=== PATIENT | female | born 2000 | race Caucasian/White ===

== ENCOUNTER 2021-04-11 08:50 | Emergency (ER) | payer SELFPAY ==
[2021-04-11 08:59] VITALS: BP 112/73; PULSE 87; RESP 16; TEMP 36.6; O2SAT 99; BMI 22.8
--- NOTE | 2021-04-11 09:02 | W.ED.FEMALGU ---
HPI - Female Genitourinary General: Chief complaint: Abdominal Pain Stated complaint: CRAMPING Time Seen by Provider: 04/11/21 08:52 Source: patient Mode of arrival: ambulatory Limitations: no limitations History of Present Illness: HPI Narrative: Patient is a 20-year-old female who presents to ED today with a complaint of lower pelvic pain and cramping over the past 1.5 weeks. She states that she has an IUD that was placed in 2019 (Kyleena-5 year) and states she has not been able to palpate the strings. She is complaining of dyspareunia. She is not having any vaginal bleeding. She does report some vaginal discharge but states this has been present since IUD placement. She has had a new sexual partner. She does complain of some dysuria. Denies frequency, urgency, hesitancy. No fevers, chills. No nausea, vomiting, changes in bowel movements. MD elicited complaint: dysuria, pelvic pain and other (concern for IUD placement) Onset (ago): week(s) (1.5 weeks) Quality of pain: cramping Consistency: intermittent Vaginal discharge: white Vaginal bleeding: none Urinary symptoms: Dysuria Exacerbating factors: intercourse Relieving factors: none Associated symptoms: Reports vaginal discharge (but states she has had this since IUD placement); Deny abdominal pain, headache(s) or nausea Treatment prior to arrival: none Sexual activity: Yes Patient : No Review of Systems Const: Denies: fever(s), chills, body aches, fatigue, malaise or night sweats ENMT: Denies: throat pain or odynophagia Card: Denies: chest pain Resp: Denies: dyspnea GI: Denies: abdominal pain, nausea, vomiting, diarrhea, change in bowel habits or change in stool character : Reports: dysuria, vaginal discharge (but states she has had this since IUD placement), pelvic pain and dyspareunia; Denies: flank pain, difficulty voiding, urinary frequency, urinary urgency, urinary hesitancy, dribbling, hematuria, genital lesions, genital pruritis or vaginal bleeding Musc: Denies: neck pain, back pain, extremity pain or joint pain Skin/Breast: Denies: rash Neuro: Denies: headache(s) PFSH ED PFSH: Medical History (Updated 04/11/21 @ 12:23 by ALISON Campos) Asthma Patient denies medical problems denies history of: htn,dm,heart, liver,kidney,thyroid,dvt, genital herpes Surgical History (Updated 11/23/19 @ 14:59 by Manisha Banda, JASVIR) History of dilation and curettage Dilation with suction curettage for missed at [address] Rapp at [facility] [place]. Pathology pending. Patient was Rh- and was given RhoGAM 5 days prior to the procedure at time of diagnosis of missed . -Pathology showed products of conception . Family History (Updated 11/23/19 @ 14:57 by Manisha Banda RN) Grandmother Hypertension maternal Thyroid cancer maternal Family/Other Diabetes Maternal aunt, maternal great uncle Denies family history of Colon cancer Ovarian cancer Heart disease Hyperlipidemia Breast cancer Uterine cancer Stroke Social History (Updated 11/23/19 @ 14:58 by Manisha Banda RN) Smoking and tobacco status: light tobacco smoker Quit status (tobacco): has quit using tobacco Former quit date comment: Smoked socially once or twice to try it Alcohol intake: never Physical Exam Const: COMMON NORMALS: no acute distress, average body habitus, patient oriented x3, no limitations, healthy appearing, alert and well nourished Resp: COMMON NORMALS: normal respiratory effort and clear to auscultation bilaterally AUSCULTATION: clear to auscultation bilaterally Cardio: COMMON NORMALS: regular rate and regular rhythm RATE: regular rate RHYTHM: regular rhythm GI: COMMON NORMALS: Normal to inspection, nondistended, normoactive bowel sounds present, Soft to palpation, No hepatosplenomegaly present and no masses PALPATION: Yes Soft to palpation, Yes Tenderness to palpation present (GI) (lower pelvis, suprapubic ), No Guarding due to palpation present (GI), No Rigid due to palpation and Yes No hepatosplenomegaly present : COMMON NORMALS: Yes no CVA tenderness, Yes normal external appearance, Yes normal appearance of the cervix and Yes no masses BLADDER/KIDNEY EXAM: Yes no CVA tenderness SPECULUM EXAM - VAGINA: Yes Vaginal discharge present Vaginal discharge present: white SPECULUM EXAM - CERVIX: No Cervical bleeding, No mucoid cervix, No Abnormal cervical discharge present, Yes IUD string present, No Cervical tenderness present and Yes Other cervical findings present (cervix appeared normal; IUD strings visualized ) BIMANUAL EXAM - VAGINA & UTERUS: Yes normal palpation, No cervical motion tenderness, No Cervical tenderness present and Yes Uterine tenderness BIMANUAL EXAM - ADNEXA, OTHER: Yes tender Back/Pelvis: COMMON NORMALS: no CVA tenderness Extremity: GENERAL: Yes normal exam except as noted Neuro: REYNA COMA SCALE: document GCS findings Reyna coma scale eye opening: Spontaneous [place] coma scale verbal response: Orientated Reyna coma scale motor response: Obey commands Reyna coma scale total score: 15 COMMON NORMALS: patient oriented x3 SENSORIUM/ORIENTATION: Yes alert Skin: COMMON NORMALS: no rashes or lesions noted GENERAL SKIN EXAM: no rashes or lesions noted Course Vital Signs: Vital signs: Vital Signs Temperature 97.9 F 04/11/21 08:59 Pulse Rate 104 H 04/11/21 11:30 Respiratory Rate 16 04/11/21 08:59 Blood Pressure 103/66 04/11/21 11:30 Pulse Oximetry 94 04/11/21 11:30 MDM - Female MDM Narrative: Medical decision making narrative: Patient is a 20-year-old female here with pelvic pain over the past 1.5 weeks. She does complain of some vaginal discharge and odor however feels this is more chronic. She is complaining of dyspareunia. She does admit to a new sexual partner recently. Complains of dysuria.Vital signs are stable. Blood work is unremarkable. Initial UA was contaminated therefore cath UA was obtained still showing slight contamination. I do not feel patient has a UTI. US TV was normal. IUD was visualized on pelvic exam and in place on US. She has white thick discharge on exam but her cervix looks normal. She did have some tenderness with bimanual exam. Swabs obtained. Wet prep does show BV so that could explain her discharge/odor. Will go ahead and give IM rocephin here and place on doxy/flagyl. Sexual abstinence until completion. Return to ED precautions given otherwise recommend follow up with PCP/Women's Health. Lab Data: Labs: Lab Results 04/11/21 04/11/21 04/11/21 Range/Units 09:25 09:25 09:25 WBC 10.0 (4.5-13.0) 10^3/ uL RBC 4.24 (4.1-5.3) 10^6/u L Hgb 12.8 (11.5-15.3) g/dL Hct 37.7 (37.0-47.0) % MCV 88.9 (81-99) fL MCH 30.2 (28.0-34.0) pg MCHC 34.0 (30.0-36.0) g/dL RDW 12.0 L (12.1-15.1) % Plt Count 403 H (130-400) 10^3/c mm MPV 9.3 (7.4-10.4) fL Neut % (Auto) 72.4 % Lymph % (Auto) 11.6 % [place] % (Auto) 8.5 % Eos % (Auto) 6.8 % Baso % (Auto) 0.4 % Neut # (Auto) 7.22 (1.8-8.0) 10^3/u L Lymph # (Auto) 1.2 L (1.5-6.5) 10^3/u L [place] # (Auto) 0.9 (0.2-0.9) 10^3/u L Eos # (Auto) 0.7 (0.0-0.8) 10^3/u L Baso # (Auto) 0.0 (0.0-0.1) 10^3/u L Nucleated RBC % (a uto) 0 % Nucleated RBCs # 0.0 /100WBC Sodium 134 L (136-145) mmol/L Potassium 3.5 (3.5-5.1) mmol/L Chloride 95 L (98-107) mmol/L Carbon Dioxide 28 (22-29) mmol/L Anion Gap 14.5 (5-19) BUN 6 (6-20) mg/dL Creatinine 0.6 (0.5-0.9) mg/dL GFR Calculation 128.8 (90-130) mL/min Glucose 102 (65-115) mg/dL Calculated Osmolal ity 276 L (285-295) mOsm/k g Calcium 8.6 (8.5-10.5) mg/dL Total Bilirubin 0.2 (0.15-1.2) mg/dL AST 20 (0-32) U/L ALT 17 (0-33) U/L Alkaline Phosphata se 108 H (35-105) IU/L Total Protein 7.6 (6.6-8.7) g/dL Albumin 3.8 (3.5-5.2) g/dL Globulin 3.8 (1.3-4.6) g/dL Urine Color Yellow (Yellow) Urine Appearance Hazy A (CLEAR) Urine pH 9 H (5-7) Ur Specific Gravit y 1.010 (1.005-1.030) Urine Protein Neg (Negative) Urine Glucose (UA) Norm (Normal) Urine Ketones Negative (Negative) Urine Blood Neg (Negative) Urine Nitrate Negative (Negative) Urine Bilirubin Neg (Negative) Prot Sulfosalicyli c Acd Negative (Negative) Urine Urobilinogen Norm (Negative) mg/dL Ur Leukocyte Ella ase 1+ H (Negative) Urine RBC None (0-2) /hpf Urine WBC 10-15 H (0-5) /hpf Ur Squamous Epith Cells 15-25 H (0-5) /hpf Amorphous Sediment Not Reportable Urine Bacteria 1+ H (NONE) /hpf Urine Mucus 1+ /hpf Urine HCG, Qual (Negative) 04/11/21 04/11/21 04/11/21 Range/Units 09:25 10:48 12:12 WBC (4.5-13.0) 10^3/ uL RBC (4.1-5.3) 10^6/u L Hgb (11.5-15.3) g/dL Hct (37.0-47.0) % MCV (81-99) fL MCH (28.0-34.0) pg MCHC (30.0-36.0) g/dL RDW (12.1-15.1) % Plt Count (130-400) 10^3/c mm MPV (7.4-10.4) fL Neut % (Auto) % Lymph % (Auto) % [place] % (Auto) % Eos % (Auto) % Baso % (Auto) % Neut # (Auto) (1.8-8.0) 10^3/u L Lymph # (Auto) (1.5-6.5) 10^3/u L [place] # (Auto) (0.2-0.9) 10^3/u L Eos # (Auto) (0.0-0.8) 10^3/u L Baso # (Auto) (0.0-0.1) 10^3/u L Nucleated RBC % (a uto) % Nucleated RBCs # /100WBC Sodium (136-145) mmol/L Potassium (3.5-5.1) mmol/L Chloride (98-107) mmol/L Carbon Dioxide (22-29) mmol/L Anion Gap (5-19) BUN (6-20) mg/dL Creatinine (0.5-0.9) mg/dL GFR Calculation (90-130) mL/min Glucose (65-115) mg/dL Calculated Osmolal ity (285-295) mOsm/k g Calcium (8.5-10.5) mg/dL Total Bilirubin (0.15-1.2) mg/dL AST (0-32) U/L ALT (0-33) U/L Alkaline Phosphata se (35-105) IU/L Total Protein (6.6-8.7) g/dL Albumin (3.5-5.2) g/dL Globulin (1.3-4.6) g/dL Urine Color Yellow Yellow (Yellow) Urine Appearance Clear Clear (CLEAR) Urine pH 9 H 9 H (5-7) Ur Specific Gravit y 1.015 1.015 (1.005-1.030) Urine Protein Neg Neg (Negative) Urine Glucose (UA) Norm Norm (Normal) Urine Ketones Negative Negative (Negative) Urine Blood Neg Neg (Negative) Urine Nitrate Negative Negative (Negative) Urine Bilirubin Neg Neg (Negative) Prot Sulfosalicyli c Acd Negative (Negative) Urine Urobilinogen Norm Norm (Negative) mg/dL Ur Leukocyte Ella ase Trace H Trace (Negative) Urine RBC None (0-2) /hpf Urine WBC 10-15 H (0-5) /hpf Ur Squamous Epith Cells 10-15 H (0-5) /hpf Amorphous Sediment Not Reportable Urine Bacteria Trace (NONE) /hpf Urine Mucus 1+ /hpf Urine HCG, Qual Negative (Negative) Imaging Data: US transvaginal : Radiologist's impression: [address] [id number] ReportSigned Patient: Caitlyn Villafana AUnit #: [id number]: 2001Acct#:[id number]/Sex: 20 / FADM Date: 04/11/21Loc: ERRoom/Bed:Attending Dr: Ordering Provider/Ordering MD: Lakisha Escobar Date of Service: 04/11/21 Procedure(s): US transvaginal [id number] Accession Number(s): [id number] Report Number: [id number] WS: [id number] TRANSVAGINAL PELVIC ULTRASOUND HISTORY: pelvic pain COMPARISON: 07/07/2019 Uterus: 6.2 cm x 4.0 cm x 3.1 cm. Normal size retroverted uterus. No mass or fibroid. Endometrium: 0.2 cm. IUD is noted normally positioned along the endometrial canal. Right ovary: 3.3 cm x 4.2 cm x 2.0 cm. Normal size with small follicles. Normal vascularity. Left ovary: 4.5 cm x 4.9 cm x 1.4 cm. Normal size ovary with normal vascularity and small follicles. No mass. US/US transvaginal [id number] IMPRESSION: 1. Normal positioning of the IUD. 2. Retroverted uterus with no fibroid. 3. No ovarian mass. Dictated By:Victoria Regan DOSigned By:Victoria Regan DOSigned Date/Time:04/11/21 1013DD/ 1011 Discharge Plan Discharge Patient Disposition: Home Clinical Impression: Pelvic pain, Bacterial vaginosis Condition: Stable Prescriptions: New Flagyl 500 mg tablet 500 mg PO BID 14 Days Qty: 28 RF: 0 doxycycline monohydrate 100 mg capsule 100 mg PO Q12H 14 Days Qty: 28 RF: 0 No Action Kyleena 17.5 mcg/24 hrs (5 yrs) 19.5 mg intrauterine device See Rx Instructions .ROUTE .COMPLEX RF: 0 levalbuterol tartrate [Xopenex HFA] 45 mcg/actuation HFA aerosol inhaler 2 inh INHALATION Q6H PRN (Reason: Shortness Of Breath) RF: 0 ibuprofen 200 mg Tablet 400 mg PO PRN RF: 0 Discharge Orders: Discharge ED (Routine); Ordered 04/11/21 Ordered By: Lakisha Escobar Patient Instructions: Bacterial Vaginosis (ED), Pelvic Pain Activity Restrictions/Additional Instructions: Please follow-up with your primary care provider or the women's health clinic in 5 to 7 days if pain does not seem to be improving. You need to return to the emergency department for worsening or severe pelvic pain, fevers, vomiting, inability to keep down your antibiotics, or any other concerns you may have. As we discussed the hospital should contact you if your gonorrhea/chlamydia swabs come back positive. Stand Alone Forms: Work/School Release Coding Level of Care Code ED Check Inspector for Aron Fwd Exam Comprehensive
[2021-04-11 09:03] VITALS: BP 102/66; PULSE 95; O2SAT 94
[2021-04-11 09:37] LABS: Basophils % 0.4 %; Eosinophils # 0.7 10^3/uL (0.0-0.8); Eosinophils % 6.8 %; Hematocrit 37.7 % (37.0-47.0); Hemoglobin 12.8 g/dL (11.5-15.3); Lymphocytes # 1.2 10^3/uL (1.5-6.5); Lymphocytes % 11.6 %; Mean Corpuscular Hemoglobin 30.2 pg (28.0-34.0); Mean Corpuscular Volume 88.9 fL (81-99); Mean Platelet Volume 9.3 fL (7.4-10.4); Monocytes # 0.9 10^3/uL (0.2-0.9); Monocytes % 8.5 %; Neutrophils # 7.22 10^3/uL (1.8-8.0); Neutrophils % 72.4 %; Nucleated Red Blood Cells % 0 %; Platelet Count 403 10^3/cmm (130-400); Red Blood Count 4.24 10^6/uL (4.1-5.3)
--- NOTE | 2021-04-11 09:44 | US_ITS ---
WS: [id number] TRANSVAGINAL PELVIC ULTRASOUND HISTORY: pelvic pain COMPARISON: 07/07/2019 Uterus: 6.2 cm x 4.0 cm x 3.1 cm. Normal size retroverted uterus. No mass or fibroid. Endometrium: 0.2 cm. IUD is noted normally positioned along the endometrial canal. Right ovary: 3.3 cm x 4.2 cm x 2.0 cm. Normal size with small follicles. Normal vascularity. Left ovary: 4.5 cm x 4.9 cm x 1.4 cm. Normal size ovary with normal vascularity and small follicles. No mass. US/US transvaginal [id number] IMPRESSION: 1. Normal positioning of the IUD. 2. Retroverted uterus with no fibroid. 3. No ovarian mass.
[2021-04-11 09:59] LABS: Alanine Aminotransferase 17 U/L (0-33); Albumin Level 3.8 g/dL (3.5-5.2); Alkaline Phosphatase 108 IU/L (35-105); Anion Gap 14.5 (5-19); Aspartate Amino Transferase 20 U/L (0-32); Blood Urea Nitrogen 6 mg/dL (6-20); Calcium 8.6 mg/dL (8.5-10.5); Carbon Dioxide 28 mmol/L (22-29); Chloride 95 mmol/L (98-107); Creatinine Clr Calc Pharmacy 125.5618; Globulin 3.8 g/dL (1.3-4.6); Glomerular Filtration Rate 128.8 mL/min (90-130); Glucose 102 mg/dL (65-115); Osmolality Calculated 276 mOsm/kg (285-295); Potassium 3.5 mmol/L (3.5-5.1); Sodium 134 mmol/L (136-145); Total Bilirubin 0.2 mg/dL (0.15-1.2); Total Protein 7.6 g/dL (6.6-8.7)
[2021-04-11 10:07] LABS: Add Urine Microscopic? YES; Bilirubin Urine Neg (Negative); Blood Urine Neg (Negative); Glucose Urine UA Norm (Normal); Ketones Urine Negative (Negative); Leukocyte Esterase Urine 1+ (Negative); Nitrate Urine Negative (Negative); Protein Urine Neg (Negative); Sulfosalicylic Acid Urine Negative (Negative); Urine Appearance Hazy (CLEAR); Urine Color Yellow (Yellow); Urobilinogen Urine Norm (Negative); pH Urine 9 (5-7)
[2021-04-11 10:08] LABS: Add Urine Culture? No; Bacteria Urine 1+ /hpf; Mucus Urine 1+ /hpf; Squamous Epithelial Cell Urine 15-25 /hpf (0-5)
[2021-04-11 10:56] LABS: Charge for UA Resulting for Rev
[2021-04-11 11:30] VITALS: BP 103/66; PULSE 104; O2SAT 94
[2021-04-11 11:31] LABS: Bilirubin Urine Neg (Negative); Blood Urine Neg (Negative); Glucose Urine UA Norm (Normal); Ketones Urine Negative (Negative); Leukocyte Esterase Urine Trace (Negative); Nitrate Urine Negative (Negative); Protein Urine Neg (Negative); Specific Gravity, Urine 1.015 (1.005-1.030); Sulfosalicylic Acid Urine Negative (Negative); Urine Appearance Clear (CLEAR); Urine Color Yellow (Yellow); Urobilinogen Urine Norm (Negative); pH Urine 9 (5-7)
[2021-04-11 11:32] LABS: Add Urine Microscopic? YES
[2021-04-11 12:17] LABS: Urine Appearance Clear (CLEAR); Urine Color Yellow (Yellow)
[2021-04-11 12:18] LABS: Bacteria Urine TRACE /hpf; Bilirubin Urine Neg (Negative); Blood Urine Neg (Negative); Glucose Urine UA Norm (Normal); Ketones Urine Negative (Negative); Leukocyte Esterase Urine Trace (Negative); Mucus Urine 1+ /hpf; Nitrate Urine Negative (Negative); Protein Urine Neg (Negative); Specific Gravity, Urine 1.015 (1.005-1.030); Urobilinogen Urine Norm (Negative); pH Urine 9 (5-7)
[2021-04-11 12:19] LABS: Add Urine Culture? No
[2021-04-11] MEDS: cefTRIAXone 1,000 MG in lidocaine 1% 2.1 ML 2 MG IM (12:38)
== END 2021-04-11 12:41 | disposition home or self-care (01) ==
PROVIDERS: Emergency Provider Physician Assistant
DX: R10.2 Pelvic and perineal pain (principal); N76.0 Acute vaginitis; A74.9 Chlamydial infection, unspecified; F17.210 Nicotine dependence, cigarettes, uncomplicated
CPT/HCPCS: 51701; 76830; 80053; 81001; 81003; 81025; 85025; 87210; 87491; 87591; 96372; 99283; J0696

== ENCOUNTER 2025-03-24 20:48 | Inpatient (IN) | payer MEDICAID, SELFPAY ==
[2025-03-22 16:14] VITALS: PULSE 79; RESP 16
[2025-03-24] VITALS (7 sets, daily range): BP systolic 105–122; BP diastolic 57–70; PULSE 83–111; BMI 39.4
[2025-03-24] MEDS: miSOPROStol 100 mcg tablet 25 MCG VAGINAL (21:26)
[2025-03-24 21:35] LABS: Basophils % 0.1 %; Eosinophils # 0.1 10^3/uL (0.0-0.8); Eosinophils % 1.1 %; Hematocrit 33.7 % (36-47); Lymphocytes # 1.6 10^3/uL (0.8-4.8); Lymphocytes % 13.7 %; Mean Corpuscular HGB Conc 32.3 g/dL (30-55); Mean Corpuscular Hemoglobin 29.9 pg (27-33); Mean Corpuscular Volume 92.3 fl (85-98); Mean Platelet Volume 9.6 fL (7.4-10.4); Monocytes # 0.8 10^3/uL (0.2-0.9); Monocytes % 6.5 %; Neutrophils # 9.21 10^3/uL (1.8-7.7); Neutrophils % 77.2 %; Nucleated Red Blood Cells % 0 %; Platelet Count 392 10^3/cmm (157-399); Red Blood Count 3.65 10^6/uL (3.85-5.65); Red Cell Distribution Width 12.5 % (12.1-15.1); White Blood Count 11.92 10^3/uL (3.29-11.43)
[2025-03-25] VITALS (71 sets, daily range): BP systolic 83–139; BP diastolic 44–98; PULSE 56–157; RESP 18; TEMP 36.7–38.2; O2SAT 97–99
[2025-03-25] MEDS: alum-mag-hydroxide-sime 30 mL UDC PO (02:32)
[2025-03-25] MEDS: miSOPROStol 100 mcg tablet 25 MCG VAGINAL (02:32)
[2025-03-25] MEDS: fentaNYL 50 mcg/mL INJ 2mL IVP (04:50)
[2025-03-25] MEDS: sodium chloride 0.9% 1,000 ML 999 ML IV (05:06)
[2025-03-25] MEDS: ROPivacaine syringe 100 MG/50 ML SYRINGE 10 MG EPIDURAL ×3 (06:25→14:40)
[2025-03-25] MEDS: dextrose 5%-lactated ringers 1,000 ML 125 ML IV ×2 (06:38→14:08)
--- NOTE | 2025-03-25 06:54 | ANES.PREANE2 ---
Pre-Anesthetic Assessment Height/Weight: Height 1.57 m Weight 97.976 kg Pulse Resp BP Pulse Ox O2 Del Method 85 18 103/64 98 Room Air 03/25/25 06:50 03/25/25 04:50 03/25/25 06:50 03/25/25 06:19 03/24/25 21:32 Preop Diagnosis: IUP labor epidural Familial anesthetic complications: none Was Beta Finn taken within 24 hours: N/A Was Clonidine taken within 24 hours: N/A Social No alcohol and No tobacco Exam alert, oriented x 3 and clear to auscultation bilaterally Airway Mallampati: Class II Dentition: full History/ROS No significant history except as noted Pulmonary Asthma CV/HEM None reported None reported Hepatic None reported GI Gastroesophageal Reflux Disease Metabolic None reported Musc/skel None reported Neuropsych None reported Anesthetic Plan ASA status: 2 Anesthesia: Regional (specify below) Medications/Allergies Home Medications ?Medication ?Instructions ?Recorded ?Confirmed ?Last Taken ?Type levalbuterol tartrate 45 2 inh inhalation Q6H PRN Shortness 11/23/19 03/24/25 03/24/25 08:00 History mcg/actuation aerosol inhaler Of Breath (Xopenex HFA) [id number]-FA 1 mg 1 tab PO DAILY 03/24/25 03/24/25 03/24/25 History tablet Allergies Allergy/AdvReac Type Severity Reaction Status Date / Time Penicillins Allergy rash Verified 04/11/21 09:11 Current Medications Generic Name Dose Route Start Last Admin Trade Name Freq PRN Reason Stop Dose Admin Al Hydrox/Mg Hydrox/Simethicone 30 ml 03/24/25 20:48 03/25/25 02:32 [id number]-Vbx-Bzjljpqeq-Roly 30 Ml Udc PO 30 ml Q4H PRN Administration INDIGESTION Fentanyl 25 - 100 mcg 03/24/25 20:48 03/25/25 04:50 Fentanyl 50 Mcg/Ml Inj 2ml IVP 25 mcg Q1H PRN Administration SEVERE PAIN Dextrose/Lactated Ringer's 1,000 mls @ 125 mls/hr 03/24/25 20:48 03/25/25 06:38 Dextrose 5%-Lactated Ringers IV 125 mls/hr .Q8H PRN Administration per label comments Ropivacaine 100 mg in 50 mls @ 10 mls/hr 03/25/25 04:45 03/25/25 06:25 Naropin Syringe EPIDURAL 10 mls/hr .Q5H ASHLEIGH Administration Sodium Chloride 1,000 mls @ 999 mls/hr 03/25/25 04:43 03/25/25 05:06 Sodium Chloride 0.9% IV 999 mls/hr .Q1H1M PRN Administration See label comments PFSH Anesthesia Medical History Asthma Patient denies medical problems denies history of: htn,dm,heart, liver,kidney,thyroid,dvt, genital herpes Surgical History History of dilation and curettage Dilation with suction curettage for missed at [address] Rapp at [facility] [place]. Pathology pending. Patient was Rh- and was given RhoGAM 5 days prior to the procedure at time of diagnosis of missed . -Pathology showed products of conception . Family History Grandmother Hypertension maternal Thyroid cancer maternal Family/Other Diabetes Maternal aunt, maternal great uncle Denies family history of Colon cancer Ovarian cancer Heart disease Hyperlipidemia Breast cancer Uterine cancer Stroke Female Reproductive History : 2 Data Anesthesia 03/24/25 21:00 Short CBC 03/24/25 Range/Units 21:00 WBC 11.92 H (3.29-11.43) 10^3/uL Hgb 10.90 L (11.27-16.99) g/dL Hct 33.7 L (36-47) % MCV 92.3 (85-98) fl Plt Count 392 (157-399) 10^3/cmm Neut % (Auto) 77.2 % Neut # (Auto) 9.21 H (1.8-7.7) 10^3/uL Blood Bank 03/24/25 21:08 Blood Type AB Negative Rho(D) Type Rh negative Antibody Screen Negative Anesthesia Procedures Epidural Time Out Performed: Yes Consents Signed: Procedure Consent Consent: requested by attending/covering physician, from patient, risks and benefits reviewed and patient agrees to proceed Lumbar Level: L3-L4 Epidural position: sitting Epidural procedure: sterile prep of area, 1% lidocaine to numb the area, 18 g needle, negative for paresthesia passed, neg for paresthesia, test dose given, 1.5% xylocaine 1:200k epi, 0.2% Ropivacaine bolus ml (5), placed PCEA, no systemic response, sterile dressing applied, L.U.D. no apparent complications and 0.2% Ropiavacaine @ mls/hr (10)
[2025-03-25] MEDS: oxytocin 30 UNIT/500 ML BAG 600 UNIT IV (17:33)
--- NOTE | 2025-03-25 17:41 | PM.OPHPUD ---
Labor & Delivery H&P Update Date of Procedure: March 25, 2025 Date H&P Performed: 03/22/25 Admission Diagnosis: IUP at 40 weeks 3 days gestation Postdates induction Preop diagnosis: IUP Planned procedure: Expectant management of induction of labor and delivery
--- NOTE | 2025-03-25 17:47 | PM.DELIVERY ---
Delivery Note: Date of delivery: March 25, 2025 Procedure: Normal spontaneous vaginal Delivering Physician: Malena Reyes MD Estimated blood loss (mL): 300 Pre-Delivery Course: The patient presented to my clinic around 36 weeks gestation after being released from residential. She had had care during the . LISBETH was by a 15 week u/s. She reported no complications during the . labs: Blood type AB-, hepatitis B nonreactive, hepatitis C REACTIVE, HIV nonreactive, RPR nonreactive, rubella immune, GC chlamydia negative, she passed her glucose tolerance test at 105, she was GBS negative. Patient states that she received the Tdap and RSV vaccine as well as RhoGAM prior to presenting to our clinic. Delivery: This is a 24-year-old G2, P0 at 40 weeks 4 days gestation who presented to labor and delivery for a planned induction secondary to postdates. Her cervix was not favorable so she was started on Cytotec. She received 2 doses of Cytotec. She received an epidural for pain management. The second dose of Cytotec put her into active labor and she progressed well on her own. She had spontaneous rupture of membranes with meconium stained fluid. Rupture of membranes was approximately 7 hours prior to delivery. She had a normal spontaneous vaginal delivery of a viable male born in OP position. Apgars 8 and 9 weight 3595 g , over an intact perineum. The infant was suctioned at delivery and placed on the mother's chest. After 45 seconds the cord was clamped and cut. Cord blood was obtained. There was a second-degree perineal laceration that was sutured using 3-0 chromic. Mother and infant were doing well after delivery. Estimated blood loss 300 mL History History History 1 Term 0 0 Miscarriages/Ectopic 1 Living Children 0 A&P Assessment and plan (1) Normal spontaneous vaginal delivery: PDMP PDMP Reviewed: Not Reviewed Coding Level of Care Code Acute Code for Chg Fwd Diagnoses Normal spontaneous vaginal delivery O80
--- NOTE | 2025-03-25 18:58 | PC.NURSE ---
pt under 6 blankets, 4 removed at this time.
[2025-03-25] MEDS: acetaminophen 325 mg Tablet 650 MG PO (19:25)
[2025-03-25] MEDS: docusate sodium 100 mg Capsule PO (19:25)
[2025-03-25] MEDS: ibuprofen 800 mg tablet PO (21:43)
[2025-03-26 05:10] VITALS: BP 97/57; PULSE 62
--- NOTE | 2025-03-26 08:00 | ANE.PACU2 ---
Inpatient post-anesthesia follow up: Airway intact: Yes Vital signs: Temperature 98.2 F Pulse Rate 74 Respiratory Rate 17 Blood Pressure 93/60 Pulse Oximetry 96 Oxygen Delivery Me thod Room Air Oxygen Flow Rate Fraction of Inspir ed Oxygen Hydration adequate: Yes Nausea and vomiting: No Pain level: 1 Mental status: Baseline Epidural Start/End: Epidural Start Date: 03/25/25 Epidural Start Time: 06:04 Epidural End Date: 03/25/25 Epidural End Time: 17:45
[2025-03-26] MEDS: ibuprofen 800 mg tablet PO ×2 (08:54→16:05)
[2025-03-26] MEDS: PRENATAL VIT NO.130/IRON/FOLIC 1 EACH TABLET PO (08:55)
[2025-03-26] MEDS: docusate sodium 100 mg Capsule PO (08:55)
[2025-03-26 08:57] VITALS: BP 92/48; PULSE 69; RESP 17; TEMP 36.6; O2SAT 97
[2025-03-26 09:30] LABS: Hematocrit 31.8 % (36-47); Mean Corpuscular Hemoglobin 30.4 pg (27-33); Mean Corpuscular Volume 92.2 fl (85-98); Mean Platelet Volume 9.5 fL (7.4-10.4); Platelet Count 346 10^3/cmm (157-399); Red Blood Count 3.45 10^6/uL (3.85-5.65); Red Cell Distribution Width 12.8 % (12.1-15.1); White Blood Count 17.41 10^3/uL (3.29-11.43)
[2025-03-26 11:40] VITALS: PULSE 71; RESP 17; O2SAT 98
[2025-03-26 16:06] VITALS: BP 95/56; PULSE 75; RESP 17; TEMP 36.6; O2SAT 97
--- NOTE | 2025-03-26 18:25 | P.DS_ITS ---
Discharge Providers Date of Admission: 03/24/25 20:48 Date of Discharge: March 26, 2025 Attending Provider at Admission: Malena Reyes MD Attending Provider at Discharge: Malena Reyes MD Diagnoses at Discharge Discharge Diagnosis (1) Normal spontaneous vaginal delivery: Status: Acute Reason for Visit Reason for Visit: induction of labor Hospital Course Hospital Course This is a 24-year-old G2 now P1 who was admitted for induction at 40 weeks 3 days gestation. She had a normal spontaneous vaginal delivery of a viable male infant. Mother and infant did well after delivery. She was ambulating, tolerating a regular diet, had average vaginal bleeding and was comfortable with discharge home Physical Exam Narrative: Resting in bed watching TV, heart regular rate and rhythm, lungs clear to auscultation bilaterally, abdomen is soft and nontender, fundus is firm, extremities have 1+ edema but no calf tenderness Urinary Catheter Management: Mcfadden: Cath Placed During This Visit: yes Reason for Continuing Indwelling Catheter: Acute Urinary Retention or Obstruction Urinary Catheter Date of Insertion: 03/25/25 Urinary Catheter Time of Insertion: 07:30 Discharge Data Studies Completed and Pending Laboratory Results WBC 17.41 10^3/uL (3.29-11.43) H 03/26/25 09:20 RBC 3.45 10^6/uL (3.85-5.65) L 03/26/25 09:20 Hgb 10.50 g/dL (11.27-16.99) L 03/26/25 09:20 Hct 31.8 % (36-47) L 03/26/25 09:20 MCV 92.2 fl (85-98) 03/26/25 09:20 MCH 30.4 pg (27-33) 03/26/25 09:20 MCHC 33.0 g/dL (30-55) 03/26/25 09:20 RDW 12.8 % (12.1-15.1) 03/26/25 09:20 Plt Count 346 10^3/cmm (157-399) 03/26/25 09:20 MPV 9.5 fL (7.4-10.4) 03/26/25 09:20 Neut % (Auto) 77.2 % 03/24/25 21:00 Lymph % (Auto) 13.7 % 03/24/25 21:00 [place] % (Auto) 6.5 % 03/24/25 21:00 Eos % (Auto) 1.1 % 03/24/25 21:00 Baso % (Auto) 0.1 % 03/24/25 21:00 Neut # (Auto) 9.21 10^3/uL (1.8-7.7) H 03/24/25 21:00 Lymph # (Auto) 1.6 10^3/uL (0.8-4.8) 03/24/25 21:00 [place] # (Auto) 0.8 10^3/uL (0.2-0.9) 03/24/25 21:00 Eos # (Auto) 0.1 10^3/uL (0.0-0.8) 03/24/25 21:00 Baso # (Auto) 0.0 10^3/uL (0.0-0.1) 03/24/25 21:00 Nucleated RBC % (auto) 0 % 03/24/25 21:00 Nucleated RBCs # 0.0 /100WBC 03/24/25 21:00 Blood Type AB Negative 03/24/25 21:08 Rho(D) Type Rh negative 03/24/25 21:08 Antibody Screen Negative 03/24/25 21:08 Screen Negative (Negative) 03/25/25 09:20 Vitals Last Vital Signs Temp 97.8 F 03/26/25 16:06 Pulse 75 03/26/25 16:06 Resp 17 03/26/25 16:06 BP 95/56 03/26/25 16:06 Pulse Ox 97 03/26/25 16:06 O2 Del Method Room Air 03/26/25 16:06 Discharge Plan Discharge Patient Disposition: Home Condition: Stable Prescriptions: Continued levalbuterol tartrate [Xopenex HFA] 45 mcg/actuation HFA aerosol inhaler 2 inh INHALATION Q6H PRN (Reason: Shortness Of Breath) [id number]-FA 1 mg Tablet 1 tab PO DAILY Discharge Orders: Discharge Order (Routine); Ordered 03/26/25 Ordered By: Malena Reyes Referrals: Malena Reyes MD [Physician, Family Practice] Referral Note: 1 month Discharge Diet: Usual diet Discharge Activity: Limit activity as instructed Activity Restrictions/Additional Instructions: Nothing per vagina for 6 weeks Discharge Attestations Time Spent in Discharge Care*: less than 30 min Quality Metrics Clinical Quality Measures [ No reported AMI, CVA or VTE this stay] Coding Level of Care Code Acute Code for Chg Fwd Diagnoses Normal spontaneous vaginal delivery O80
[2025-03-26 21:00] VITALS: BP 93/60; PULSE 74; RESP 17; TEMP 36.8; O2SAT 96
== END 2025-03-26 21:30 | disposition home or self-care (01) | DRG 807 ==
PROVIDERS: Admitting Provider Family Medicine; Visit Provider Family Medicine
DX: O48.0 Post-term pregnancy (principal); Z37.0 Single live birth; Z3A.40 40 weeks gestation of pregnancy; O77.0 Labor and delivery complicated by meconium in amniotic fluid; O70.1 Second degree perineal laceration during delivery
CPT/HCPCS: 36415; 36430; 51702; 59025; 59409; 85025; 85027; 85460; 86850; 86900; 90384; 96374; 96376; J2590; J2795; J3010; J7030; J7121; J9999

== ENCOUNTER 2025-08-29 19:24 | Emergency (ER) | payer MEDICAID, SELFPAY ==
--- OUTSIDE RECORDS SUMMARY | 2025-08-29 19:29 | XMS_ITS | Data Portability ---
Author Organization [facility], [place], [facility] Address [address] [address] Assessment No assessment recorded. Plan of Treatment Reminders Order Date Submit Date Provider Last Modified By Organization Details Last Modified Time Details Appointments ULTRASO UND 2024 11:00A M ULTRASOUND Not available Not available Not available ETHAN OV 2024 11:15A M Malena Reyes MD Not available Not available Not available Lab pregnan cy test, urine 2024 025 [email or web address] [facility] ([facility]), [address] [place], [address], 07/09/2025 13:55:26 Referral None recorde d. Procedures None recorde d. Surgeries None recorde d. Imaging US, pelvis, limited /follow -up - [id number] 2024 025 [email or web address], [address] [place] [address], [address], 07/07/2025 12:40:04 Medication Orders Kyleena 17.5 mcg/24 hr (up to 5 years) 19.5 mg intraut erine device 2024 025 Not available 07/07/2025 12:40:04 Xopenex HFA 45 mcg/act uation aerosol inhaler 2024 025 [facility] [place], [address], 03/16/2025 14:45:21 Patient TargetsNo targets recorded. Patient Instructions Encounter Date Encounter Id Patient Instructions Last Modified By Organization Details Last Modified Time 07/05/2025 [id number] intrauterine device (IUD) insertion: care instructions Not available 07/09/2025 13:56:37 Reason for Referral None Reported. Results Created Date Observation Date Name Description Value Unit Range Abnormal Flag Note LastModifiedBy Organization Detail LastModifiedTime 07/05/2007/05/2025 pregn oxana test, urine HCG negati ve Not Available [facility] ([facility]) [address] [place], [address], 07/05/2025 12:22:16 Result Notes None recorded. Problems Name Problem SNOMED Code Status Onset Date Resolution Date Notes Provider Name and Address Organization Details Recorded Time Asthma 898982322 Active 2014 EXTRINSIC ASTHMA; Recorded 5 12:05PM by Manisha Borjas LPN, Annotatio n/Addendu m; Promoted; acuity set as *; [facility] 16:22:13 Pregnanc y [id number] Completed 202405/05/2025 HEATHER GRAYSON [facility] 13:02:54 Chronic hepatiti s C 860609954 Active 2024 [facility] 16:26:33 History of substanc e use disorder Active 2024 Last used in July 2024, meth, marijuana , and fentyl JUAN RAMON robertson [facility] 16:31:31 Finding related to substanc e use 459155405 Active 2024 Hx of in 2022 JUAN RAMON robertson [facility] 16:31:58 Problem Notes None recorded. Procedures Surgical History Date Name Laterality Status Provider Name and Address Organization Details Recorded Time jr iud insertion completed Malena Reyes MD [address] [place], [address], [facility] 07/09/2025 13:54:25 debridement completed HEATHER GRAYSON [facility] 03/09/2025 10:34:00 dilation and curettage of uterus completed HEATHER GRAYSON [facility] 03/09/2025 10:34:14 Imaging Results None recorded. Procedure Notes None recorded. Medical Equipment None Reported. Allergies Allergen ID Allergen Name Allergen Category Reaction Reaction Severity Criticality Documentation Date Start Date Code Code System Note Provider Name and Address Organization Details Recorded Time 49699 Product containin g penicilli n (product) medicatio n Not available Not available Not available 05/18/2023 44512 8001 SNOMED JUAN RAMON AGGARWAL [facility] 16:30:22 Medications Name Sig Start Date Stop Date Status Note LastModified by Organization Details LastModified Time albuterol sulfate 2.5 mg/3 mL (0.083 %) solution for nebulizat ion Q 4hr/PRN 03/01 completed Use as directed q 4 hours as needed for wheezing ; Recorded 10/15/20 13 11:04AM by Oleksandr xiong MD, Office Visit; Refill Quantity : 60; Ampule; Not Available Not Available Not Available levalbute rol HFA 45 mcg/actua tion aerosol inhaler INHALE 2 PUFFS INTO LUNGS EVERY 4 HOURS NEEDED FOR WHEEZING active Not Available Not Available No t Available Pulmicort Flexhaler two times daily 03/01 completed 1 inhalati on bid rinse mouth after use; Recorded 10/15/20 13 11:03AM by Oleksandr xiong MD, Office Visit; Refill Quantity : 1; Inhaler; Not Available Not Available Not Available 28 mg iron-800 mcg tablet Take 1 tablet every day by oral route for 30 days. 05/05 completed Not Available Not Available Not Available Kyleena 17.5 mcg/24 hr (up to 5 years) 19.5 mg intrauter ine device Take 1 device by intraute rine route. 2024 active Not Available Not Available Not Avai lable Vitals Date Recorded Body height Body mass index (BMI) Body weight Body temperature Oxygen saturation Oxygen saturation in Arterial blood by Pulse oximetry Heart rate Systolic And Diastolic Provider Name and Address Organization Details Last Updated DateTime 5 157.48 cm 39.5 kg/m2 33824.9 5 g 97.4 [degF] 99 % 99 % 84 /min 114/72 mm[Hg] [facility] 5 14:34:02 Date Recorded Body height Body mass index (BMI) Body weight Body temperature Oxygen saturation Oxygen saturation in Arterial blood by Pulse oximetry Heart rate Systolic And Diastolic Provider Name and Address Organization Details Last Updated DateTime 5 157.48 cm 39.5 kg/m2 59577.9 5 g 97.1 [degF] 97 % 97 % 102 /min 112/72 mm[Hg] [facility] 12:36:26 Date Recorded Body height Body mass index (BMI) Body weight Body temperature Oxygen saturation Oxygen saturation in Arterial blood by Pulse oximetry Heart rate Systolic And Diastolic Provider Name and Address Organization Details Last Updated DateTime 5 157.48 cm 35.1 kg/m2 86822.7 4 g 98.6 [degF] 98 % 98 % 115 /min 100/78 mm[Hg] HEATHER GRAYSON [facility] 13:01:08 Date Recorded Body height Provider Name an d Address Organization Details Last Updated DateTime 07/05/2025 157.48 cm [facility] 07/05/2025 12:15:51 Social History Question Answer Notes LastModified by Organizat ion Details LastModified Time Tobacco Smoking Status Current Every Day Smoker HEATHER GRAYSON [facility] 05/05/2025 13:04:26 What Was The Date Of Your Most Recent Tobacco Screening? 05/05/2025 [email or web address] Information not available 05/05/2025 Sex: Unknown Functional Status Question Answer Note LastModified by Organizat ion Details LastModified Time Do you or have you ever used any other forms of tobacco or nicotine? Yes [email or web address] Information not available 03/01/2025 Do you or have you ever used e-cigarettes or vape? Current user of electronic cigarettes [email or web address] Information not available 03/01/2025 Do you or have you ever used any nicotine-free cigarettes, vape, or chewing tobacco? No [email or web address] Information not available 03/01/2025 Mental Status None recorded. Family History Nothing Reported Notes:Mother with asthma, bi polar disorder, OCD, Hypertension; Maternal Grandmother, Diabetes ; Maternal Grandmother Medical History Condition Response Coronary Artery Disease N Other N Gout N Kidney Stones N Blood Diseases N Hyperthyroidism N Breast Cancer N Blood Transfusion N Depression N Hypothyroidism N Lung Disease N COPD N Defects or Inherited Disease N Developmental or Behavioral Disorders N Breast Problem N Difficulty Swallowing N Anesthesia Complications N Meniere's disease N Anxiety Disorder N Muscle, Joint, or Bone Problems N Vision or Eye Problems N Arthritis N Polyps N Infertility N Cancer N Varicosities N Stroke N Endometriosis N Bladder or Kidney Problems N High Cholesterol N Liver Disease N Fibromyalgia N Headaches N Kidney Disease N Allergies/Hayfever N Heart Problems N Ear or Hearing Problems N Hospitalizations N Thyroid Problems N GI Problems N ADD/ADHD N Skin Problems N Eating Disorder N Anemia N Constipation N Mental Illness N Ovarian Cancer N Diabetes N Bedwetting N Seizures/Epilepsy N Tuberculosis N Eczema N Diverticulitis N Abuse/Domestic Violence N Asthma Y Reflux/GERD N Hepatitis N Heart Disease N Pulmonary Embolism N Pre-Eclampsia N Hypertension N Chronic Ear Infections N Osteoporosis N Chicken Pox N Autism Spectrum Disorder (ASD) N Thrombophilias N Gynecological History Statement/Question Response Date of Last Pap Smear Obstetrics History GPAL:G 2 P 1 0 1 1 Type Value Full Term 1 Spontaneous 1 Living 1 Total 2 Immunizations Vaccine Type Date Status Note Provider Nam e and Address Organization Details Recorded Time Hep B, unspecified formulation 2 completed Not Available [facility] 07/05/2025 12:11:27 Hep B, unspecified formulation 2 completed Not Available [facility] 07/05/2025 12:11:27 DTaP 2 completed Not Available [facility] 07/05/2025 12:11:27 Hib (PRP-T) 2 completed Not Available [facility] 07/05/2025 12:11:27 IPV 2 completed Not Available [facility] 07/05/2025 12:11:27 pneumococcal conjugate PCV 7 2 completed Not Available [facility] 07/05/2025 12:11:27 DTaP 2 completed Not Available [facility] 07/05/2025 12:11:27 Hib (PRP-T) 2 completed Not Available [facility] 07/05/2025 12:11:27 IPV 2 completed Not Available [facility] 07/05/2025 12:11:27 pneumococcal conjugate PCV 7 2 completed Not Available [facility] 07/05/2025 12:11:27 Hep B, unspecified formulation 2 completed Not Available [facility] 07/05/2025 12:11:27 DTaP 2 completed Not Available [facility] 07/05/2025 12:11:27 Hib (PRP-T) 2 completed Not Available [facility] 07/05/2025 12:11:27 IPV 2 completed Not Available [facility] 07/05/2025 12:11:27 pneumococcal conjugate PCV 7 2 completed Not Available [facility] 07/05/2025 12:11:27 DTaP 4 completed Not Available [facility] 07/05/2025 12:11:27 Hib (PRP-T) 4 completed Not Available [facility] 07/05/2025 12:11:27 MMR 4 completed Not Available [facility] 07/05/2025 12:11:27 varicella 4 completed Not Available [facility] 07/05/2025 12:11:27 pneumococcal conjugate PCV 7 4 completed Not Available [facility] 07/05/2025 12:11:27 [facility] 6 completed [facility] 07/05/2025 12:11:27 IPV 6 completed Not Available [facility] 07/05/2025 12:11:27 MMR 6 completed Not Available [facility] 07/05/2025 12:11:27 varicella 8 completed Not Available [facility] 07/05/2025 12:11:27 Tdap 4 completed Not Available [facility] 07/05/2025 12:11:27 meningococcal MCV4P 4 completed Not Available [facility] 07/05/2025 12:11:27 HPV, quadrivalent 4 completed Not Available [facility] 07/05/2025 12:11:27 HPV, quadrivalent 4 completed Not Available [facility] 07/05/2025 12:11:27 HPV, quadrivalent 5 completed Not Available [facility] 07/05/2025 12:11:27 Influenza, split virus, quadrivalent, PF 6 completed Not Available [facility] 07/05/2025 12:11:27 Tdap 0 completed Not Available [facility] 07/05/2025 12:11:27 Past Encounters Encounter ID Performer Location Encounter Start Date Encounter Closed Date Diagnosis/Indication Diagnosis SNOMED-CT Code Diagnosis ICD10 Code Diagnosis IMO Codes Diagnosis Note [id number] Malena Reyes MD [facility] ([facility]) [address] [place] [phone] 03/01/2025 15:57:52 03/07/2025 20:03:56 Gestation period, 37 weeks 70546359 Z3A.37 0791797 got Tdap and RSV vaccine already. Normal 4548049 2 Z34.83 4641301 Chronic hepatitis C 1283 77560 B18.2 09339365 [id number] Malena Reyes MD [facility] ([facility]) [address] [place] [phone] 03/09/2025 10:25:20 03/11/2025 13:05:49 Normal 03211797 Z34.83 7479550 Chronic hepatitis C 1283 13772 B18.2 53774668 Gestation period, 38 weeks 30193999 Z3A.38 4846166 got Tdap and RSV vaccine already. Dyspnea 514719131 R06.02 93883 lungs clear, walking pulse ox 97%. reassuranc e likely related and congestion . 03/09/25 [id number] Malena Reyes MD [facility] ([facility]) [address] [place] [phone] 03/16/2025 14:28:01 03/18/2025 09:01:37 Gestation period, 39 weeks 21333344 Z3A.39 8174087 Multigravida 270059332 Z 34.83 22728343 Mild inter mittent asthma 996263100 J45.20 8835348 [id number] Malena Reyes MD [facility] ([facility]) [address] [place] [phone] 03/22/2025 12:25:25 03/23/2025 11:53:05 Gestation period, 40 weeks 91663059 Z3A.40 3590782 Multigravida 704980001 Z 34.83 51279993 Chronic hepatitis C 1283 82188 B18.2 05033426 RhD negative 840177945 O 26.899 Z67.91 417923 [id number] Malena Reyes MD [facility] ([facility]) [address] [place] [phone] 05/05/2025 12:34:36 05/05/2025 16:05:06 Mild intermittent asthma 516546879 J45.20 care status 24 8864925 Z39.2 2883799 Prescripti on of contraception 083904719 Z30.014 01618927 Discussed risk benefits and alternativ es of IUD with the patient in detail. She would like to order Kyleena. We will call her when we have received the device and she will then schedule insertion. Patient given the handout on preinserti on medication s to take. She was advised to abstain from intercours e or use extra protection like condoms prior to insertion [id number] Malena Reyes MD [facility] ([facility]) [address] [place] [phone] 07/05/2025 12:10:44 07/05/2025 13:52:08 Prescription of contraception 619675450 Z30.014 33739629 Inserted but not quite at the fundus. Awaiting receipt of a second Kyleena for appropriat e placement. Difficult to visualize by ultrasound due to bowel gas patterns. Patient has been very understand ing and has tolerated the procedure well. For the time being I have left the Kyleena in place but have instructed her to either abstain from intercours e or use condoms. 07/05/2025 [id number] Malena Reyes MD [facility] ([facility]) [address] [place] [address] 07/05/2025 12:11:14 07/06/2025 16:50:00 Insertion of intrauterine contraceptive device 29398740 Z30.430 132477 Health Concerns Section Related Observation LastModified by Organization Detai ls LastModified Time None Recorded Concern Status LastModified by Organization Details LastModified Time None Recorded Advance Directives Directive None Recorded Payers Insurance Date Sequence Insurance Name Policy Number Policy Cisneros Covered Member ID Cisneros Member ID Guarantor Name 05/05/2025 1 [place] [id number] Osvaldo Villafana [id number] Aylonna A Villafana 08/27/2025 1 [facility] (MEDICAID HMO) Aylonna A Villafana [id number] Aylonna A Villafana 08/27/2025 [place] [facility] (INSTIT[facility]AL) Aylonna A Villafana [id number] Aylonna A Villafana 08/27/2025 [place] Aylonna A Villafana [id number] Aylonna A Villafana 08/27/2025 [facility] (MEDICAID HMO) Aylonna A Villafana [id number] Aylonna A Villafana 08/27/2025 2 [place] Aylonna A Villafana [id number] Aylonna A Villafana Notes Date Note Type Note Provider Name and Address Organization Details Recorded Time 03/16/2025 text/html jr ob routineRep orted by PatientHPIFor associated symptoms, patient reportsno abdominal pain,no cramping,no contractions,normal movement,no bleeding,no dysuria,no frequency,no nausea,no emesis,no constipation,no edema,no headache, andno dizziness. Malena Reyes MD [address] [place] [address], [phone], [facility] 03/16/2025 14:46:22 03/22/2025 text/html jr ob routineRep orted by PatientHPIFor associated symptoms, patient reportsno abdominal pain,no cramping,no contractions,normal movement,no bleeding,no dysuria,no frequency,no urgency,no nausea,no emesis,no constipation,no edema,no headache, andno dizziness. Malena Reyes MD [address] [place] [address], [phone], [facility] 03/22/2025 13:04:47 05/05/2025 text/html VisitReported by PatientHPIFor context, patient reportsno complicationsandno labor complications. For associated symptoms, patient reportsno abnormal bleeding,no pelvic pain, andno constipation. For contraception plan, patient reportsiud hormonal.ROS as noted in the HPI no bleeding, not sure if she had it. It is hard to differentiate from the bleedingMood seems to be okay, no complaintNo vaginal complaint, no abdominal painShe is interested in getting the IUD. She had the IUD for about 5 years, the Kyleena, had it taken out while she was in intermediate or right before going into intermediate Malena Reyes MD [address] [place] [address], [phone], [facility] 05/05/2025 14:28:44 OBGyn Episode Ob Episode Information Episode Created Date Number of Fetuses Patient Bloodtype Patient rh Status Prepregnancy Weight lbs Domestic Partner Domestic Partner Phone Father Name Vp Of Digital Marketing Status 03/01/20 25 1 AB Negative CLOSED Fetus Data First Name Last Name Admitted to NICU Weight (g) Sex Living Outcome Pediatric Complications Fetus ID Race Codes Race Delivery Type false 3600.38 65 M true Full Term [id number] VAGINAL James Calculation Initial James Date Initial Exam Date Initial Exam Provider Initial Ultrasound Date Last Menstrual Period Date Ultra Sound Weeks Gestation 03/01/2025 06/14/2024 0 Eighteen To Twenty Week James Update Ultra Sound Date Fundal Height At Umbil Quickening Date Ultra Sound Latest Weeks Gestation Final James Confirmed By Final James Confirmed Date Final James Date Ultra Sound Latest Days Gestation 0 [email or web address] 03/01/2025 03/21/20 25 0 Pre- Flowsheet Flowsheet Date 03/01/2025 Smith Score Blood Edema Fundus Height Fundus Units Glucose Ketones Leukocytes Nitrite Labor Signs Protein Cervic Dilation Cervic Effacement Cervic Station 38 cm trace none Negative trace Type Weight in lbs Pre/Post Dialysis Refused With clothes 207.735349574333 BP Diastolic BP Location Tested BP Systolic BP Type 70 R arm 114 sitting Fetus Heart Rate Present A 135 Fetus Movement A Yes Comments transfer from intermediate Flowsheet Date 03/09/2025 Smith Score Blood Edema Fundus Height Fundus Units Glucose Ketones Leukocytes Nitrite Labor Signs Protein Cervic Dilation Cervic Effacement Cervic Station 38 cm none 2+ 1+ Type Weight in lbs Pre/Post Dialysis Refused Weight 211.897074997906 BP Diastolic BP Location Tested BP Systolic BP Type 70 115 Fetus Heart Rate Present A 145 Fetus Movement A Yes Comments Baby boy. Wants him circumsi zed. John Gregory. Wants BC after baby is born. Flowsheet Date 03/16/2025 Smith Score Blood Edema Fundus Height Fundus Units Glucose Ketones Leukocytes Nitrite Labor Signs Protein Cervic Dilation Cervic Effacement Cervic Station 39 cm none trace Negative neg Type Weight in lbs Pre/Post Dialysis Refused With clothes 216.277076628165 BP Diastolic BP Location Tested BP Systolic BP Type 72 R arm 114 sitting Fetus Heart Rate Present A 140 Fetus Movement A Yes Comments GBS neg. Flowsheet Date 03/22/2025 Smith Score Blood Edema Fundus Height Fundus Units Glucose Ketones Leukocytes Nitrite Labor Signs Protein Cervic Dilation Cervic Effacement Cervic Station 39 cm trace trace Negative neg 1cm 0% -4 Type Weight in lbs Pre/Post Dialysis Refused With clothes 216.682140468751 BP Diastolic BP Location Tested BP Systolic BP Type 72 R arm 112 sitting Fetus Heart Rate Present A 135 Fetus Movement A Yes Comments consents signed. pt would bridger salvador induction - scheduled Wed at 8pm Flowsheet Date 05/05/2025 Smith Score Blood Edema Fundus Height Fundus Units Glucose Ketones Leukocytes Nitrite Labor Signs Protein Cervic Dilation Cervic Effacement Cervic Station Type Weight in lbs Pre/Post Dialysis Refused Weight 192.665880858147 BP Diastolic BP Location Tested BP Systolic BP Type 78 100 Fetus Heart Rate Present Fetus Movement Comments Menstrual History Last Menstrual Date Menses Monthly On Bcp Conception Prior Menses Frequency Hcg Plus Date Menarche Onset Age 0806/14/2024 Genetic Screening And Infection History Question Response Note Patient's Age Will Be 35 Yea rs Or Older At Estimated Date of Delivery false Thalassemia (Amharic, Italian, Mediterranean, Or Background): MCV < 80 false Neural Tube Defect (Meningom yelocele, Spina Bifida, Or Anencephaly) false Congenital Heart Defect false Down Syndrome false Gamaliel-Sachs (eg, Hindu, Cajun, Ukrainian-Gibson) f alse Yoandy Disease false Sickle Cell Disease Or Trait () false Hemophilia Or Other Blood Disorders false Muscular Dystrophy false Cystic Fibrosis false Jennifer's Chorea false Intellectual Disability/Autism false If Yes, Was Person Tested For Fragile X? false Other Inherited Genetic Or C hromosomal Disorder false Maternal Metabolic Disorder (eg, Type 1 Diabetes, PKU) false Patient Or Baby's Father Had A Child With Defects Not Listed Above false Recurrent Loss, Or A Stillbirth false Medications (including Suppl ements, Vitamins, Herbs, OTC Drugs), Illicit/Recreational Drugs, Alcohol true If Yes, Agent(s) And Strength/Dosage false Any Other Genetic History false Live With Someone With TB Or Exposed To TB false Patient Or Partner Has Histo ry Of Genital Herpes false Rash Or Viral Illness Since Last Menstrual Period false History Of STD, Gonorrhea, C hlamydia, HPV, Syphilis true chlaymida and sid was treate d Other Infection History false History of HIV false History of Hepatitis true has hep c Prior GBS-infected child false Hemoglobinopathy Or Carrier false Other Structural Defect false Recent Travel History Outside of Country false Mental Retardation/Autism false Delivery Information Delivery Date Delivery Type Labor Anesthesia Weeks Gestation Incision Type Labor Labor Length Hrs Delivered By Post Complications Tubal Sterilization Discharge Date Comments 5 Induce d 40.4 false None false Discharge Information Feeding Method Contraceptive Method Maternal HG B and HCT Levels
[2025-08-29 19:31] VITALS: BP 114/84; PULSE 101; TEMP 37.1; O2SAT 98; BMI 29.2
--- NOTE | 2025-08-29 20:14 | ED_ITS ---
HPI - URI/Sore Throat General: Chief Complaint: Upper Respiratory Infection Stated Complaint: Sore Throat\Cough Time Seen by Provider: 08/29/25 19:27 History of Present Illness: Patient is a 24-year-old who presents with complaints of a severe sore throat that began yesterday. The patient reports extreme pain with swallowing and states they are unable to eat or drink due to the discomfort. Patient notes some mild rhinorrhea but denies cough. Family members (mother and brother) have had sore throats recently but reportedly not as severe as the patient's symptoms. Patient denies fever (has not checked temperature) and denies any rashes. Related Data Home Medications ?Medication ?Instructions ?Recorded ?Confirmed levalbuterol tartrate 45 2 inh inhalation Q6H PRN Layla rtness 11/23/19 03/24/25 mcg/actuation aerosol inhaler Of Breath (Xopenex HFA) [id number] 1 mg 1 tab PO DAILY 03/24/25 tablet Previous Rx's ?Medication ?Instructions ?Recorded ibuprofen 600 mg tablet 600 mg PO Q6H PRN fever or p ain 08/29/25 #20 tabs Allergies Allergy/AdvReac Type Severity Reaction Status Date / Time Penicillins Allergy rash Verified 04/11/21 09:11 [facility] ED PFSH: Medical History Asthma Patient denies medical problems denies history of: htn,dm,heart, liver,kidney,thyroid,dvt, genital herpes Surgical History History of dilation and curettage Dilation with suction curettage for missed at [address] Rapp at [facility] [place]. Pathology pending. Patient was Rh- and was given RhoGAM 5 days prior to the procedure at time of diagnosis of missed . -Pathology showed products of conception . Family History Grandmother Hypertension maternal Thyroid cancer maternal Family/Other Diabetes Maternal aunt, maternal great uncle Denies family history of Colon cancer Ovarian cancer Heart disease Hyperlipidemia Breast cancer Uterine cancer Stroke Physical Exam Const: COMMON NORMALS: no acute distress GENERAL APPEARANCE: cooperative; not ill appearing and not frail appearing HENMT: COMMON NORMALS: normocephalic, atraumatic and Normal external nose present HEAD & SCALP: normocephalic and atraumatic FACE & SINUS: normal facial exam and face symmetric NOSE: Normal external nose present THROAT: uvula midline and abnormal tonsil bilateral erythema and hypertrophy; no exudates; no peritonsillar mass Eye: COMMON NORMALS: Equal, round and reactive pupils present and EOMs intact bilaterally PUPIL: Yes Equal, round and reactive pupils present Neck/C-Spine: GENERAL: Yes trachea midline Chest: CHEST: Yes Symmetrical chest wall rise Resp: COMMON NORMALS: normal respiratory effort, No retractions, No use of accessory muscles and clear to auscultation bilaterally AUSCULTATION: clear to auscultation bilaterally Cardio: COMMON NORMALS: regular rate and regular rhythm RATE: regular rate RHYTHM: regular rhythm Neuro: REYNA COMA SCALE: document GCS findings [place] coma scale eye opening: Spontaneous Reyna coma scale verbal response: Orientated Reyna coma scale motor response: Obey commands [place] coma scale total score: 15 SENSORY EXAM: Yes extremities (intact) Psych: COMMON NORMALS: speech normal SPEECH: Yes normal speech Skin: COMMON NORMALS: no rashes or lesions noted GENERAL SKIN EXAM: no rashes or lesions noted Course Vital Signs: Vital signs: Vital Signs Temperature 98.8 F 08/29/25 19:31 Pulse Rate 64 08/29/25 20:30 Blood Pressure 120/81 08/29/25 20:30 Pulse Oximetry 99 08/29/25 20:30 Oxygen Delivery Me thod Room Air 08/29/25 20:30 MDM - URI/Sore Throat Medical Decision Making Swabs for flu RSV COVID and strep are negative. She has received pain medication, a dose of dexamethasone here. Continue with salt water gargles, ibuprofen, etc. Outpatient follow-up. Return for worsening symptoms. Stable for discharge Lab Data Laboratory Results Influenza A (PCR) Negative (Negative) 08/29/25 20:00 Influenza Type B (PCR) Negative (Negative) 08/29/25 20:00 RSV (PCR) Negative (Negative) 08/29/25 20:00 SARS-CoV-2 (PCR) Negative (Negative) 08/29/25 20:00 Group A Strep Rapid Negative (Negative) 08/29/25 20:00 No radiology studies performed this visit Discharge Plan Discharge Patient Disposition: Home Clinical Impression: Pharyngitis Condition: Stable Prescriptions: New ibuprofen 600 mg tablet 600 mg PO Q6H PRN (Reason: fever or pain) Qty: 20 0RF No Action levalbuterol tartrate [Xopenex HFA] 45 mcg/actuation HFA aerosol inhaler 2 inh INHALATION Q6H PRN (Reason: Shortness Of Breath) [id number] 1 mg Tablet 1 tab PO DAILY Discharge Orders: Discharge ED (Routine); Ordered 08/29/25 Ordered By: Ravindra Callejas Patient Instructions: Pharyngitis (ED), Opioid Safety, Pain Management, Patient Portal & Arlyn Instructions Activity Restrictions/Additional Instructions: You were treated in the emergency department for pharyngitis. Swabs for strep throat were negative. This means you will not require antibiotics. You were given a dose of steroid, which can take up to 12 hours to begin to help, but lasts for 4 days or so. This will help with pain and swelling related to your tonsils. Take ibuprofen for pain or fever. Salt water gargles may help. Return for problems. Stand Alone Forms: Work/School Release Print Language: Macedonian Coding Level of Care Code ED Panel Wirer for Aron Flower
[2025-08-29 20:19] LABS: Rapid Strep A Test Negative (Negative)
[2025-08-29] MEDS: HYDROcodone-APAP 7.5-325 mg/15 mL UDC PO (20:27)
[2025-08-29 20:30] VITALS: BP 120/81; PULSE 64; O2SAT 99
[2025-08-29 20:46] LABS: Respiratory Syncytial Virus Ce NEGATIVE (Negative); SARS-CoV-2 PCR NEGATIVE (Negative)
== END 2025-08-29 21:13 | disposition home or self-care (01) ==
PROVIDERS: Emergency Provider Emergency Medicine
DX: J02.9 Acute pharyngitis, unspecified (principal); Z11.52 Encounter for screening for COVID-19
CPT/HCPCS: 87081; 87637; 87880; 96374; 99284; J1100; J9999